=== PATIENT | male | born 1945 | race Caucasian/White ===

== ENCOUNTER 2018-02-22 12:42 | Inpatient (IN) | payer OTHER, MEDICARE ==
--- OUTSIDE RECORDS SUMMARY | 2018-02-22 12:44 | XMS REPORT ---
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 Problem Primary osteoarthritis of both M17.0 Active knees Problem Alcohol abuse F10.10 Active Problem Rectus diastasis M62.08 Active Problem Hemorrhoids K64.9 Active Problem 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 Problem Renal cyst, acquired, left N28.1 Active Assessment Primary osteoarthritis, 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 Assessment Abnormal kidney function N28.9 Active Assessment Alcohol abuse F10.10 Active Assessment Umbilical hernia without K42.9 Active obstruction and without gangrene Assessment Benign essential HTN I10 Active Assessment Primary osteoarthritis of both M17.0 Active knees Problem Insomnia G47.00 Active Assessment Hyperlipidemia E78.5 Active Problem Benign essential HTN I10 Active Medications Medication Code Code Instructions Start End Status Dosage System Date Date Flonase [facility] 47554104295 50 MCG/ACT Active 1 spray in Nasally Once a each day nostril Zyrtec Allergy [facility] 73615646449 10 MG Orally Active 1 tablet Once a day Benadryl [facility] 65970478294 25 MG Orally Active 1 capsule every 8 hrs as needed Celebrex [facility] 81578066411 100 MG Orally Active 1 capsule Once a day with food Vitamin B-12 [facility] 66941592826 1000 MCG Orally Active 1 tablet Once a day Zestoretic [facility] 58707908431 20-25 MG Orally Active 1 tablet Once a day Turmeric [facility] 04786016924 500 MG Orally Active as directed Melatonin [facility] 85009133549 10 MG Orally Active as directed Aspirin [facility] 79780765782 81 MG Orally Active 1 tablet Once a day Lipitor [facility] 81467895832 20 MG Orally Neyda Active 1 tablet Once a day 2017 Results No Known Results Summary Purpose [employer]Works Submission
--- OUTSIDE RECORDS SUMMARY | 2018-02-22 12:44 | XMS REPORT ---
:1945 Author Organization [employer] Care Team Providers Name Role Phone Xiang Hopson Provider Role Unavailable Allergies, Adverse Reactions, Alerts [...] Renal cyst, acquired, left N28.1 Active Assessment Pain, joint, hand, left M25.542 Active Problem Insomnia G47.00 Active Assessment Swelling of left middle finger M79.89 Active Problem Benign essential HTN I10 Active Medications Medication Code Code Instructions Start End Status Dosage System Date Date Turmeric [facility] 17461753458 500 MG Orally Active as directed Benadryl [facility] 03224227983 25 MG Orally Active 1 capsule every 8 hrs as needed Flonase [facility] 72479590544 50 MCG/ACT Active 1 spray in Nasally Once a each day nostril Zestoretic ND 71981832746 20-25 MG Orally Active 1 tablet Once a day Vitamin B-12 ND 33323445603 1000 MCG Orally Active 1 tablet Once a day Melatonin [facility] 20774975735 10 MG Orally Active as directed Aspirin ND 54578827173 81 MG Orally Active 1 tablet Once a day Celebrex ND 92591212348 100 MG Orally Active 1 capsule Once a day with food Lipitor ND 53930983849 20 MG Orally Neyda Active 1 tablet Once a day 2017 Zyrtec Allergy ND 88946684475 10 MG Orally Active 1 tablet Once a day Results No Known Results Summary Purpose eClinicalWorks Submission
[2018-02-22 13:28] LABS: Absolute Lymphocytes (CBC) 0.8 K/uL (0.7-4.9); Absolute Monocytes 0.7 K/uL (0.1-1.3); Absolute Neutrophil 8.9 K/uL (1.8-8.0); Basophils % 0.1 % (0-1.3); Eosinophils % 2.5 % (0-4.4); Hematocrit 47.8 % (39.6-49.0); Lymphocytes % 7.8 % (15.3-44.8); MCH 33.9 pg (27.0-35.0); MCV 97.4 fL (80-100); MPV 9.5 fL (7.6-11.3); Monocytes % 6.8 % (3.3-12.3); RBC Red Blood Cell Count 4.91 M/uL (4.33-5.43)
[2018-02-22] MEDS ORDERED: NA CHLORIDE 0.9% 1,000 ML ONE ×2 (13:28→15:41)
[2018-02-22 13:29] LABS: Protime INR 1.02
[2018-02-22] MEDS ORDERED: ONDANSETRON 4 MG/2 ML VIAL ONE (13:32)
[2018-02-22 13:51] LABS: ALT/SGPT 27 U/L (12-78); AST/SGOT 19 U/L (15-37); Albumin 3.4 g/dL (3.4-5.0); Alkaline Phosphatase 69 U/L (45-117); BUN Blood Urea Nitrogen 18 mg/dL (7-18); Bicarbonate 26 mmol/L (21-32); Bilirubin Direct 0.1 mg/dL (0-0.2); Bilirubin Total 0.4 mg/dL (0.2-1.0); Glucose Level 115 mg/dL (74-106); Magnesium 2.2 mg/dL (1.8-2.4); NT PRO-BNP 73 pg/mL (<125); Potassium 4.2 mmol/L (3.5-5.1); Protein, Total 6.6 g/dL (6.4-8.2); Sodium Level 139 mmol/L (136-145); Troponin (Emerg Dept Use Only) < 0.02 ng/mL (0.0-0.045)
--- NOTE | 2018-02-22 14:55 | RAD REPORT ---
EXAM DESCRIPTION: CT - CTHCSPWOC - 02/22/2018 2:28 pm CLINICAL HISTORY: Syncope, dizziness, fall COMPARISON: None. TECHNIQUE: Axial 5 mm thick images of the head were obtained. Axial 2 mm thick images of the cervic al spine were obtained with sagittal and coronal reconstruction images generated and reviewed. All CT scans are performed using dose optimization technique as appropriate and may include automated exposure control or mA/KV adjustment according to patient size. FINDINGS: No intracranial hemorrhage, mass, edema or acute intracranial finding. No suspicion for acute infarct ion. Mild atrophy and chronic ischemic changes are present. Ventricles are in proportion to volume lo ss. No cortical edema or sulcal effacement. Mastoid air cells are clear. Minimal frontal sinus mucosa l thickening. No air-fluid level. Significant left deviation of the nasal septum. No globe or orbit a bnormality seen. Cervical body height and alignment are normal. C4-5, C5-6 and C6-7 disc space narrowing present. Cent ral canal detail is inherently limited. Significant right foraminal stenosis at C4-5 and bilateral at C5-6. Moderate bilateral C6-7 foraminal stenosis. No fracture or acute bony abnormality. No paraspinal mass or hematoma. IMPRESSION: No hemorrhage, edema or acute intracranial finding. Patient has mild atrophy and chronic ischemic change. Cervical degenerative changes are present without fracture or acute finding.
--- NOTE | 2018-02-22 15:09 | RAD REPORT ---
EXAM DESCRIPTION: CT - Abdomen Pelvis W Contrast - 02/22/2018 2:39 pm CLINICAL HISTORY: Abdominal pain COMPARISON: April 2014 TECHNIQUE: Biphasic, helical CT imaging of the abdomen and pelvis was performed following 100 ml non -ionic IV contrast. No oral contrast administered. All CT scans are performed using dose optimization technique as appropriate and may include automated exposure control or mA/KV adjustment according to patient size. FINDINGS: No suspicious findings in the lung bases. The liver, spleen, and pancreas show no suspicious findings. Gallbladder and biliary tree are also wi thout suspicious finding. Symmetric renal function is seen with no hydronephrosis or suspicious renal mass. No pyelonephritis o r acute renal parenchymal process. Large left renal cyst is present not significantly different from 2014. No suspicious change in characteristics. Urinary bladder is mostly contracted. Distal esophagus near the GE junction is mildly prominent. The patient has a minimal hiatal hernia. T here is a minimal amount of fluid adjacent to the GE junction. Carey of the gastric antrum are thicke beni and edematous. No outlet obstructive mass. Small bowel loops are not dilated though there are sev eral distal small bowel loops showing mildly prominent carey. Congestion or edema is present surround ing the distal rectum. Moderate stool volume is present. There is minimal stranding in the fatty tiss ues adjacent to the proximal sigmoid colon which is tortuous and redundant. No free air or pneumatosis. There is a small quantity of free fluid in the dependent portion of the p alvaro. No abscess or surgically emergent finding. The appendix is normal. No bulky lymphadenopathy or mass. Patient does have bilateral fat only inguinal hernias. There is evidence for prior repair of a periumbilical hernia. Disc and bony degenerative changes are present. No pathologic bone process. Tarlov cyst formation in the sacrum is present as an incidental finding. IMPRESSION: No bowel obstruction, free air or surgically emergent finding. Patient has a multifocal gastroenteritis pattern. Patient shows evidence for antritis, GE junction/d istal esophagitis, mild distal small bowel enteritis as well as mild colitis findings of the mid sigm oid colon and distal rectum.
--- NOTE | 2018-02-22 15:32 | EDPHYS ---
Physician Documentation [facility] Name: Chidi Patel Age: 73 yrs Sex: Male : 1945 Arrival Date: 02/22/2018 Time: 12:48 Bed 13 Private MD: Hector Markham ED Physician Guanakito Bhandari HPI: 02/22 13:38 This 73 yrs old Male presents to ER via EMS with complaints of Syncope. jr8 13:38 The patient has experienced syncope. Onset: The symptoms/episode began/occurred jr8 acutely, today. Duration: This was a single episode. Context: the episode(s) was witnessed, by family, occurred at home, occurred while the patient was sitting, Just prior to the episode the patient experienced lightheadedness, nausea. Associated injury: Head/face: Neck:. Associated signs and symptoms: The patient has no apparent associated signs or symptoms. Current symptoms: Currently, the patient is not experiencing any symptoms, the patient feels back to baseline, no decreased level of consciousness, no confusion, no dysphasia, no headache, no paralysis, no visual changes. The patient has not experienced similar symptoms in the past. The patient has not recently seen a physician. Patient woke up nauseated. Had several soft stool bowel movements this morning. Was on the toilet and started to feel nauseated again. Was getting up to turn around to vomit and then the next thing he remembers is family helping him off of the floor. Did not take his BP medications this morning . Historical: - Allergies: 12:57 PENICILLINS; tw2 - Home Meds: 12:57 Cymbalta oral oral [Active]; lisinopril-hydrochlorothiazide oral oral [Active]; tw2 atorvastatin oral oral [Active]; aspirin 81 mg Oral chew 1 tab once daily [Active]; - PMHx: 12:57 Hypertension; Hyperlipidemia; tw2 - Immunization history:: Adult Immunizations. - Social history:: Smoking status: . - Ebola Screening: : Patient denies travel to an Ebola-affected area in the 21 days before illness onset. ROS: 13:38 Eyes: Negative for injury, pain, redness, and discharge, ENT: Negative for injury, jr8 pain, and discharge, Neck: Negative for injury, pain, and swelling, Cardiovascular: Negative for chest pain, palpitations, and edema, Respiratory: Negative for shortness of breath, cough, wheezing, and pleuritic chest pain, Back: Negative for injury and pain, MS/Extremity: Negative for injury and deformity, Skin: Negative for injury, rash, and discoloration. 13:38 Abdomen/GI: Positive for abdominal pain, nausea and vomiting, Negative for abdominal distension, anorexia, dysphagia, hematemesis, black/tarry stool, rectal pain, rectal bleeding, bowel incontinence, flatulence. 13:38 Neuro: Positive for syncope. Exam: 13:38 Eyes: Pupils equal round and reactive to light, extra-ocular motions intact. Lids and jr8 lashes normal. Conjunctiva and sclera are non-icteric and not injected. Cornea within normal limits. Periorbital areas with no swelling, redness, or edema. ENT: Nares patent. No nasal discharge, no septal abnormalities noted. Tympanic membranes are normal and external auditory canals are clear. Oropharynx with no redness, swelling, or masses, exudates, or evidence of obstruction, uvula midline. Mucous membranes moist. Neck: Trachea midline, no thyromegaly or masses palpated, and no cervical lymphadenopathy. Supple, full range of motion without nuchal rigidity, or vertebral point tenderness. No Meningismus. Cardiovascular: Regular rate and rhythm with a normal S1 and S2. No gallops, murmurs, or rubs. Normal PMI, no JVD. No pulse deficits. Respiratory: Lungs have equal breath sounds bilaterally, clear to auscultation and percussion. No rales, rhonchi or wheezes noted. No increased work of breathing, no retractions or nasal flaring. Abdomen/GI: Soft, non-tender, with normal bowel sounds. No distension or tympany. No guarding or rebound. No evidence of tenderness throughout. Ventral hernia present and without pain Back: No spinal tenderness. No costovertebral tenderness. Full range of motion. Skin: Warm, dry with normal turgor. Normal color with no rashes, no lesions, and no evidence of cellulitis. MS/ Extremity: Pulses equal, no cyanosis. Neurovascular intact. Full, normal range of motion. Neuro: Awake and alert, GCS 15, oriented to person, place, time, and situation. Cranial nerves II-XII grossly intact. Motor strength 5/5 in all extremities. Sensory grossly intact. Cerebellar exam normal. Normal gait. Vital Signs: 12:54 BP 98 / 63; Pulse 87; Resp 17; Temp 97.6(TE); Pulse Ox 98% on R/A; tw2 12:54 Weight 82.55 kg (R); Height 6 ft. 0 in. (182.88 cm); Pain 0/10; tw2 13:47 BP 119 / 72 Supine; Pulse 78; Resp 14; Pulse Ox 97% on 2 lpm NC; tw2 14:08 BP 129 / 86 Sitting; Pulse 90; tw2 14:08 BP 125 / 79 Supine; Pulse 81; Resp 17; Pulse Ox 99% on 2 lpm NC; tw2 14:47 BP 126 / 76; Pulse 81; Resp 19; Pulse Ox 99% on R/A; tw2 15:15 BP 126 / 80; Pulse 69; Resp 17; Pulse Ox 96% on R/A; tw2 16:03 BP 118 / 70; Pulse 72; Resp 20; Pulse Ox 95% on R/A; tw2 17:00 BP 122 / 90; Pulse 79; Resp 17; Pulse Ox 95% on R/A; tw2 17:50 BP 116 / 77; Pulse 88; Resp 17; Pulse Ox 95% on R/A; tw2 12:54 Body Mass Index 24.68 (82.55 kg, 182.88 cm) tw2 12:54 "no pain, just stomach discomfort" tw2 13:47 pt placed on 2l nc at "seizure" episode tw2 14:08 provider Jorge Swanson PA at bedside tw2 MDM: 12:50 Patient medically screened. jr8 13:38 ED course: Patient while sitting up had syncopal episode in exam bed. Came too fast. jr8 Another Liter Bolus started . 15:30 Data reviewed: vital signs, nurses notes, lab test result(s), EKG, radiologic studies, jr8 CT scan, plain films, and as a result, I will admit patient. Data interpreted: Pulse oximetry: on room air is 99 %. Interpretation: normal. Counseling: I had a detailed discussion with the patient and/or guardian regarding: the historical points, exam findings, and any diagnostic results supporting the discharge/admit diagnosis, lab results, radiology results, the need for further work-up and treatment in the hospital. Physician consultation: Karen Mandujano MD was called at 15:30, was contacted at 15:30, regarding admission, to the telemetry unit. consult, patient's condition, and will see patient. 02/22 13:05 Order name: Basic Metabolic Panel; Complete Time: 13:54 02/22 13:05 Order name: CBC with Diff; Complete Time: 13:32 02/22 13:05 Order name: LFT's; Complete Time: 13:54 02/22 13:05 Order name: Magnesium; Complete Time: 13:54 02/22 13:05 Order name: NT PRO-BNP; Complete Time: 13:54 02/22 13:05 Order name: PT-INR; Complete Time: 13:32 02/22 13:05 Order name: Troponin (emerg Dept Use Only); Complete Time: 13:54 02/22 13:05 Order name: XRAY Chest (1 view); Complete Time: 15:53 02/22 14:05 Order name: CT Head C Spine; Complete Time: 15:00 02/22 14:05 Order name: CT Abd/Pelvis - W/Contrast; Complete Time: 15:19 02/22 13:05 Order name: EKG; Complete Time: 13:07 02/22 13:05 Order name: Cardiac monitoring; Complete Time: 13:18 02/22 13:05 Order name: EKG - Nurse/Tech; Complete Time: 13:18 02/22 13:05 Order name: IV Saline Lock; Complete Time: 13:18 02/22 13:05 Order name: Labs collected and sent; Complete Time: 13:18 02/22 13:05 Order name: O2 Per Protocol; Complete Time: 13:17 02/22 13:05 Order name: O2 Sat Monitoring; Complete Time: 13:02/22 16:21 Order name: Diet Clear Liquid; Complete Time: 16:21 tw2 Administered Medications: 13:20 Drug: NS 0.9% 1000 ml Route: IV; Rate: 1 bolus; Site: left antecubital; tw2 14:08 Follow up: Response: No adverse reaction; IV Status: Completed infusion; IV Intake: tw2 1000ml 13:26 Drug: Zofran 4 mg Route: IVP; Site: left antecubital; tw2 14:08 Follow up: Response: No adverse reaction; Nausea is decreased tw2 15:40 Drug: ProTONIX 40 mg Route: IVP; Site: left antecubital; tw2 16:21 Follow up: Response: No adverse reaction tw2 15:45 Drug: Flagyl 500 mg Volume: 100 ml; Route: IVPB; Rate: 200 ml/hr; Infused Over: 30 tw2 mins; Site: left antecubital; 16:21 Follow up: Response: No adverse reaction; IV Status: Completed infusion tw2 15:45 Drug: NS 0.9% 1000 ml Route: IV; Rate: 125 ml/hr; Site: left antecubital; tw2 16:50 Follow up: IV Status: Infusion continued upon admission tw2 16:21 Drug: Cipro 400 mg Volume: 200 ml; Route: IVPB; Infused Over: 60 mins; Site: left tw2 antecubital; 17:53 Follow up: Response: No adverse reaction; IV Status: Completed infusion tw2 Disposition: 02/22/18 15:31 Hospitalization ordered by Karen Mandujano for Inpatient Admission. Preliminary diagnosis are Dehydration, Orthostatic hypotension, Syncope and collapse, Colitis. - Bed requested for Telemetry/MedSurg (Inpatient). - Status is Inpatient Admission. ss - Condition is Stable. - Problem is new. - Symptoms have improved. UTI on Admission? No Addendum: 02/25/2018 08:12 Co-signature as Attending Physician, Guanakito Bhandari MD I agree with the assessment and c carrera plan of care. Signatures: Dispatcher [employer] [facility] Nancy Kraft RN RN dw Anderson, Corey, MD MD cha Smirch, Shelby, RN RN ss Sky Stephens PA PA jr8 Luisa Lemos RN RN tw2 Corrections: (The following items were deleted from the chart) 02/22 16:43 15:31 Hospitalization Ordered by Karen Mandujano MD for Inpatient Admission. Preliminary dw diagnosis is Dehydration; Orthostatic hypotension; Syncope and collapse; Colitis. Bed requested for Telemetry/MedSurg (Inpatient). Status is Inpatient Admission. Condition is Stable. Problem is new. Symptoms have improved. UTI on Admission? No. jr8 18:02 16:43 02/22/2018 15:31 Hospitalization Ordered by Karen Mandujano MD for Inpatient Admission. Preliminary diagnosis is Dehydration; Orthostatic hypotension; Syncope and collapse; Colitis. Bed requested for Telemetry/MedSurg (Inpatient). Status is Inpatient Admission. Condition is Stable. Problem is new. Symptoms have improved. UTI on Admission? No. dw
--- NOTE | 2018-02-22 15:32 | ER ---
Nurse's Notes [facility] Name: Chidi Patel Age: 73 yrs Sex: Male : 1945 Arrival Date: 02/22/2018 Time: 12:48 Bed 13 Private MD: Hector Markham Diagnosis: Dehydration;Orthostatic hypotension;Syncope and collapse;Colitis Presentation: 02/22 12:48 Presenting complaint: EMS states: pts family called he had a syncopal episode, tw2 +orthostatic pressures for us with dizziness when standing, c/o abdominal pain that started last night, loose stools x1day, Hx HTN. Transition of care: patient was not received from another setting of care. Onset of symptoms was February 22, 2018. Risk Assessment: Do you want to hurt yourself or someone else? Patient reports no desire to harm self or others. Initial Sepsis Screen: Does the patient meet any 2 criteria? No. Patient's initial sepsis screen is negative. Does the patient have a suspected source of infection? No. Patient's initial sepsis screen is negative. Care prior to arrival: Medication(s) given: Normal saline infusion, 400 ml IV initiated. 18 GA, in the left antecubital area. 12:48 Method Of Arrival: EMS: [facility] tw2 12:48 Acuity: RAFAELA 3 tw2 Historical: - Allergies: 12:57 PENICILLINS; tw2 - Home Meds: 12:57 Cymbalta oral oral [Active]; lisinopril-hydrochlorothiazide oral oral [Active]; tw2 atorvastatin oral oral [Active]; aspirin 81 mg Oral chew 1 tab once daily [Active]; - PMHx: 12:57 Hypertension; Hyperlipidemia; tw2 - Immunization history:: Adult Immunizations. - Social history:: Smoking status: . - Ebola Screening: : Patient denies travel to an Ebola-affected area in the 21 days before illness onset. Screenin:48 Abuse screen: Denies threats or abuse. Nutritional screening: No deficits noted. tw2 Tuberculosis screening: No symptoms or risk factors identified. Fall Risk None identified. Assessment: 12:50 General: Appears in no apparent distress. Behavior is calm, cooperative, appropriate tw2 for age. Pain: Denies pain. Neuro: Level of Consciousness is awake, alert, obeys commands, Oriented to person, place, time, situation. Cardiovascular: Reports lightheadedness, Heart tones S1 S2 Capillary refill < 3 seconds Patient's skin is warm and dry. Respiratory: Airway is patent Respiratory effort is even, unlabored, Respiratory pattern is regular, symmetrical, Breath sounds are clear bilaterally. GI: Abdomen is round non-distended, Bowel sounds present X 4 quads. Reports lower abdominal pain, upper abdominal pain, nausea. : No signs and/or symptoms were reported regarding the genitourinary system. EENT: No signs and/or symptoms were reported regarding the EENT system. Derm: Bruising that is dark purple, on around right eye and eyebrow. Musculoskeletal: Capillary refill < 3 seconds, Range of motion: intact in all extremities. 13:20 Reassessment: pts family at bedside report pt having seizure, PHYLICIA Uribe and DIONNE Smith tw2 at bedside, pt is cool and diaphoretic, pts position in bed was lowered to supine, fluids started at this time, will continue to monitor. 13:51 Reassessment: Patient appears in no apparent distress at this time. Patient and/or tw2 family updated on plan of care and expected duration. Pain level reassessed. Patient is alert, oriented x 3, equal unlabored respirations, skin warm/dry/pink. 14:48 Reassessment: Patient appears in no apparent distress at this time. Patient and/or tw2 family updated on plan of care and expected duration. Pain level reassessed. Patient is alert, oriented x 3, equal unlabored respirations, skin warm/dry/pink. 15:00 Reassessment: Patient appears in no apparent distress at this time. Patient and/or tw2 family updated on plan of care and expected duration. Pain level reassessed. Patient is alert, oriented x 3, equal unlabored respirations, skin warm/dry/pink. 16:03 Reassessment: Patient appears in no apparent distress at this time. Patient and/or tw2 family updated on plan of care and expected duration. Pain level reassessed. Patient is alert, oriented x 3, equal unlabored respirations, skin warm/dry/pink. 17:00 Reassessment: Patient appears in no apparent distress at this time. Patient and/or tw2 family updated on plan of care and expected duration. Pain level reassessed. Patient is alert, oriented x 3, equal unlabored respirations, skin warm/dry/pink. 17:53 Reassessment: Patient appears in no apparent distress at this time. Patient and/or tw2 family updated on plan of care and expected duration. Pain level reassessed. Patient is alert, oriented x 3, equal unlabored respirations, skin warm/dry/pink. Vital Signs: 12:54 BP 98 / 63; Pulse 87; Resp 17; Temp 97.6(TE); Pulse Ox 98% on R/A; tw2 12:54 Weight 82.55 kg (R); Height 6 ft. 0 in. (182.88 cm); Pain 0/10; tw2 13:47 BP 119 / 72 Supine; Pulse 78; Resp 14; Pulse Ox 97% on 2 lpm NC; tw2 14:08 BP 129 / 86 Sitting; Pulse 90; tw2 14:08 BP 125 / 79 Supine; Pulse 81; Resp 17; Pulse Ox 99% on 2 lpm NC; tw2 14:47 BP 126 / 76; Pulse 81; Resp 19; Pulse Ox 99% on R/A; tw2 15:15 BP 126 / 80; Pulse 69; Resp 17; Pulse Ox 96% on R/A; tw2 16:03 BP 118 / 70; Pulse 72; Resp 20; Pulse Ox 95% on R/A; tw2 17:00 BP 122 / 90; Pulse 79; Resp 17; Pulse Ox 95% on R/A; tw2 17:50 BP 116 / 77; Pulse 88; Resp 17; Pulse Ox 95% on R/A; tw2 12:54 Body Mass Index 24.68 (82.55 kg, 182.88 cm) tw2 12:54 "no pain, just stomach discomfort" tw2 13:47 pt placed on 2l nc at "seizure" episode tw2 14:08 provider Jorge Swanson PA at bedside tw2 ED Course: 12:48 Patient arrived in ED. tw2 12:48 Bed in low position. Call light in reach. Side rails up X2. Adult w/ patient. Cardiac tw2 monitor on. Pulse ox on. NIBP on. 12:50 Sky Stephens PA is PHCP. jr8 12:50 Guanakito Bhandari MD is Attending Physician. jr8 12:52 Luisa Lemos RN is Primary Nurse. tw2 12:53 Hector Markham MD is Private Physician. rg4 12:54 Triage completed. tw2 12:56 Arm band placed on. tw2 14:13 XRAY Chest (1 view) In Process Unspecified. EDMS 14:28 CT Head C Spine In Process Unspecified. EDMS 14:39 CT Abd/Pelvis - W/Contrast In Process Unspecified. EDMS 15:31 Karen Mandujano MD is Hospitalizing Provider. jr8 16:48 Awaiting: attempted to call report, was told that nurse just got a pt, asked to speak tw2 with charge nurse as ER is full and the room here is needed, was told PHYLICIA Lantigua will have to call me back. 17:32 Awaiting: attempted to call report, was told that phylicia lantigua is not available for report tw2 and the charge nurse is discharging a pt. 17:49 Awaiting: attempted to call report to PHYLICIA Lantigua at this time, PHYLICIA Carroll took report. tw2 17:54 No provider procedures requiring assistance completed. Patient admitted, IV remains in tw2 place. Administered Medications: 13:20 Drug: NS 0.9% 1000 ml Route: IV; Rate: 1 bolus; Site: left antecubital; tw2 14:08 Follow up: Response: No adverse reaction; IV Status: Completed infusion; IV Intake: tw2 1000ml 13:26 Drug: Zofran 4 mg Route: IVP; Site: left antecubital; tw2 14:08 Follow up: Response: No adverse reaction; Nausea is decreased tw2 15:40 Drug: ProTONIX 40 mg Route: IVP; Site: left antecubital; tw2 16:21 Follow up: Response: No adverse reaction tw2 15:45 Drug: Flagyl 500 mg Volume: 100 ml; Route: IVPB; Rate: 200 ml/hr; Infused Over: 30 tw2 mins; Site: left antecubital; 16:21 Follow up: Response: No adverse reaction; IV Status: Completed infusion tw2 15:45 Drug: NS 0.9% 1000 ml Route: IV; Rate: 125 ml/hr; Site: left antecubital; tw2 16:50 Follow up: IV Status: Infusion continued upon admission tw2 16:21 Drug: Cipro 400 mg Volume: 200 ml; Route: IVPB; Infused Over: 60 mins; Site: left tw2 antecubital; 17:53 Follow up: Response: No adverse reaction; IV Status: Completed infusion tw2 Intake: 14:08 IV: 1000ml; Total: 1000ml. tw2 Outcome: 15:31 Decision to Hospitalize by Provider. dominic 17:53 Admitted to Med/surg accompanied by tech, via wheelchair, room 215, with chart, Report tw2 called to Carly Gonzalez RN 17:53 Condition: stable 17:53 Instructed on the need for admit. 18:02 Patient left the ED. ss Signatures: Dispatcher [employer] EDMS Jojo John, RN RN ss Sky Stephens, DIONNE PA jr8 Luisa Lemos RN RN tw2 Renuka Dill rg4 Corrections: (The following items were deleted from the chart) 14:10 13:47 BP 119 / 72 Supine; Pulse 78bpm; Resp 14bpm; Pulse Ox 97% RA; tw2 tw2 14:49 12:50 Derm: No signs and/or symptoms reported regarding the dermatologic system. tw2 tw2 16:52 16:48 Awaiting: attempted to call report, was told that nurse just got a pt, asked to tw2 speak with charge nurse as ER is full and the room here is needed tw2 17:50 17:49 Awaiting: attempted to call report to PHYLICIA Lantigua tw2 tw2 17:55 17:49 Awaiting: attempted to call report to PHYLICIA Lantigua at this time. tw2 tw2
[2018-02-22] MEDS ORDERED: PANTOPRAZOLE 40 MG INJ ONE (15:41)
[2018-02-22] MEDS ORDERED: CIPROFLOXACIN 400mg IV 400 MG/200 ML BAG IV ONE (15:41)
[2018-02-22] MEDS ORDERED: METRONIDAZOLE 500mg IVPB 500 MG/100 ML BAG IV ONE (15:41)
--- NOTE | 2018-02-22 15:44 | RAD REPORT ---
EXAM DESCRIPTION: RAD - Chest Single View - 02/22/2018 2:12 pm CLINICAL HISTORY: Chest pain, abdominal pain COMPARISON: None. TECHNIQUE: AP portable chest image was obtained 1345 hours . FINDINGS: Lung volumes are low. No focal mass or consolidation. Interstitial markings are prominent with the baseline unknown. Vasculature is mildly prominent. Heart size is normal range. No measurable pleural effusion and no pneumothorax. No acute bony abnormality seen. No acute aortic findings suspe cted. IMPRESSION: Baseline examination showing prominent interstitial markings. Mild interstitial edema or infiltrate not excluded.
[2018-02-22] MEDS ORDERED: ONDANSETRON 4 MG/2 ML VIAL IV PRN (18:21)
[2018-02-22] MEDS: NA CHLORIDE 0.9% 1,000 ML IV SCH ×2 (18:21→23:20)
[2018-02-22] MEDS ORDERED: ACETAMINOPHEN 500 MG TAB PO PRN (18:21)
[2018-02-22 18:24] LABS: Urine Blood NEGATIVE (NEG); Urine Glucose NEGATIVE (NEG); Urine Protein NEGATIVE (NEG); Urine pH 5.5 (5.0-7.0)
[2018-02-22] MEDS ORDERED: ENOXAPARIN 40 MG/0.4 ML SQ SCH (20:00)
[2018-02-23] MEDS: METRONIDAZOLE 500mg IVPB 500 MG/100 ML BAG IV SCH ×2 (00:32→10:10)
[2018-02-23] MEDS ORDERED: METHYLPREDNISOLONE 40 MG INJ IV ONE (03:00)
[2018-02-23] MEDS ORDERED: PANTOPRAZOLE 40 MG INJ IVP ONE (03:00)
[2018-02-23] MEDS ORDERED: SODIUM CHLORIDE 0.9% 10ML INJ IV PRN (03:00)
[2018-02-23] MEDS ORDERED: CIPROFLOXACIN 400mg IV 400 MG/200 ML BAG IV SCH (06:00)
[2018-02-23 06:25] LABS: Absolute Lymphocytes (CBC) 0.8 K/uL (0.7-4.9); Absolute Monocytes 0.3 K/uL (0.1-1.3); Absolute Neutrophil 3.8 K/uL (1.8-8.0); Basophils % 0.6 % (0-1.3); Eosinophils % 14.8 % (0-4.4); Lymphocytes % 14.4 % (15.3-44.8); MCH 33.7 pg (27.0-35.0); MCV 97.4 fL (80-100); MPV 9.5 fL (7.6-11.3); Monocytes % 4.3 % (3.3-12.3)
[2018-02-23 06:51] LABS: Albumin 2.9 g/dL (3.4-5.0); Bilirubin Total 0.4 mg/dL (0.2-1.0); Potassium 4.4 mmol/L (3.5-5.1); Protein, Total 5.6 g/dL (6.4-8.2)
--- NOTE | 2018-02-23 07:03 | EKG ---
Test Date: 2018-02-22 Test Time: 13:16:09 Paper Baling Machine Operator: GUILLERMO MEASUREMENT RESULTS: Intervals: Rate: 88 IA: 160 QRSD: 106 QT: 378 QTc: 457 [place]: P: 26 IA: 160 QRS: -30 T: 44 INTERPRETIVE STATEMENTS: Normal sinus rhythm Left axis deviation Minimal voltage criteria for LVH, may be normal variant Abnormal ECG No previous ECG available for comparison Electronically Signed On 02-23-18 07:02:49 DIE TECHNICIAN by Mikal Batista
--- NOTE | 2018-02-23 08:32 | RAD REPORT ---
EXAM DESCRIPTION: US - CP - 02/22/2018 9:32 pm CLINICAL HISTORY: Syncope COMPARISON: None. TECHNIQUE: Real-time sonographic evaluation of both carotid systems was performed. Hadley scale and Do ppler interrogation were performed with waveform tracing bilaterally. FINDINGS: Normal high resistance waveforms are noted in both external carotid arteries. The common c arotid arteries and internal carotid arteries show normal low resistance waveforms. Bilateral carotid bulb calcified plaquing changes are present with right common carotid calcified marvin quing changes as well. On visual inspection no significant luminal narrowing identified. No dissectio n. Peak systolic and end diastolic velocity values and the ICA/CCA ratios are in the non-hemodynamica lly significant range. Antegrade flow seen in both vertebral arteries. Velocity values and ratios were recorded and are retained in the patient's imaging records. IMPRESSION: Bilateral calcified plaquing changes are present. However, no significant stenosis ident ified.
--- NOTE | 2018-02-23 11:09 | P.HP ---
Certification for Inpatient Patient admitted to: Observation With expected LOS: <2 Midnights Patient will require the following post-hospital care: None Practitioner: I am a practitioner with admitting privileges, knowledge of patient current condition, hospital course, and medical plan of care. Services: Services provided to patient in accordance with Admission requirements found in Title 42 Section 412.3 of the Code of Federal Regulations Patient History Date of Service: 02/22/18 Reason for admission: Syncope History of Present Illness: Patient is a 73-year-old gentleman who was in his house when he passed out. He had gone to the bathroom and was having diarrhea and felt nauseated. He felt he was going to vomit but then he passed out. He came around he thinks about 30 seconds later. He was not feeling like himself so he came in to the emergency room for further evaluation. Patient also has a cough and says he feels like something is caught up in the back of his throat. He is not really sure what is causing it. His CT scan revealed gastritis and esophagitis. Patient needs to be evaluated for further treatment. Allergies Penicillins Allergy (Verified 02/22/18 18:19) Itching Home Medications: Aspirin [Aspirin EC 81 MG] 81 mg PO DAILY 02/22/18 Atorvastatin Calcium [Lipitor] 20 mg PO DAILY 02/22/18 Lisinopril/Hydrochlorothiazide [Zestoretic 20-25 mg Tablet] 1 each PO DAILY - Past Medical/Surgical History Has patient received pneumonia vaccine in the past: Yes Diabetic: No -: Hypertension -: Cyst in Kidney -: Umbilical hernia repair -: Eye surgery - Family History Father Medical History: Heart disease, Cancer Mother Medical History: Heart disease, Hypertension - Social History Smoking Status: Never smoker Alcohol use: Yes CD- Drugs: No Caffeine use: Yes Place of Residence: Home Review of Systems 10-point ROS is otherwise unremarkable Physical Examination - Vital Signs Temperature: 97.4 F Blood Pressure: 119/66 Pulse: 82 Respirations: 18 Pulse Ox (%): 93 - Physical Exam General: Alert, In no apparent distress, Oriented x3 HEENT: Atraumatic, PERRLA, Mucous membr. moist/pink, EOMI, Sclerae nonicteric Neck: Supple, 2+ carotid pulse no bruit, No LAD, Without JVD or thyroid abnormality Respiratory: Clear to auscultation bilaterally, Normal air movement Cardiovascular: Regular rate/rhythm, Normal S1 S2, No murmurs Gastrointestinal: Normal bowel sounds, Soft and benign, Non-distended, No tenderness, No rebound, No guarding Musculoskeletal: No clubbing, No swelling, No tenderness Integumentary: No rashes Neurological: Normal gait, Normal speech, Normal strength at 5/5 x4 extr, Normal tone, Sensation intact, Cranial nerves 3-12 intact, Normal affect Lymphatics: No axilla or inguinal lymphadenopathy - Studies Laboratory Data (last 24 hrs) 02/22/18 13:15: PT 12.0, INR 1.02 02/22/18 13:15: WBC 10.7, Hgb 16.7, Hct 47.8, Plt Count 177 02/22/18 13:15: Sodium 139, Potassium 4.2, BUN 18, Creatinine 1.10, Glucose 115 H, Magnesium 2.2, Total Bilirubin 0.4, AST 19, ALT 27, Alkaline Phosphatase 69 Assessment & Plan - Problems (Diagnosis) (1) Syncope and collapse Current Visit: Yes Status: Acute (2) Intractable nausea and vomiting Current Visit: Yes Status: Acute (3) Diarrhea Current Visit: Yes Status: Acute (4) Esophagitis with gastritis Current Visit: Yes Status: Acute - Plan Plan: 1. IV hydration 2. Antiemetics 3. Protonix twice a day 4. Carotid Doppler 5. Echocardiogram 6. Monitor on telemetry 7. GI and DVT prophylaxis Discharge Plan: Home Plan to discharge in: 48 Hours - Advance Directives Does patient have a Living Will: Yes Does patient have a Durable POA for Healthcare: Yes - Code Status/Comfort Care Code Status Assessed: Yes Code Status: Full Code Critical Care: No Time Spent Managing PTS Care (In Minutes): 50
--- NOTE | 2018-02-23 15:31 | P.SSS ---
Patient History Date of Service: 02/23/18 Reason for admission: Syncope History of Present Illness: Patient is a 73-year-old gentleman who was in his house when he passed out. He had gone to the bathroom and was having diarrhea and felt nauseated. He felt he was going to vomit but then he passed out. He came around he thinks about 30 seconds later. He was not feeling like himself so he came in to the emergency room for further evaluation. Patient also has a cough and says he feels like something is caught up in the back of his throat. He is not really sure what is causing it. His CT scan revealed gastritis and esophagitis. Patient needs to be evaluated for further treatment. Allergies Penicillins Allergy (Verified 02/22/18 18:19) Itching Home Medications: Aspirin [Aspirin EC 81 MG] 81 mg PO DAILY 02/22/18 Atorvastatin Calcium [Lipitor*] 20 mg PO DAILY 02/22/18 Lisinopril/Hydrochlorothiazide [Zestoretic 20-25 mg Tablet] 1 each PO DAILY Pantoprazole Sodium [Protonix] 40 mg PO DAILY #30 tab 02/23/18 - Past Medical/Surgical History Has patient received pneumonia vaccine in the past: Yes Diabetic: No -: Hypertension -: Cyst in Kidney -: Umbilical hernia repair -: Eye surgery - Family History Father -: Heart disease, Cancer Mother -: Heart disease, Hypertension - Social History Smoking Status: Never smoker Alcohol use: Yes CD- Drugs: No Caffeine use: Yes Place of Residence: Home Review of Systems 10-point ROS is otherwise unremarkable Physical Examination - Vital Signs Temperature: 98.0 F Blood Pressure: 149/80 Pulse: 84 Respirations: 16 Pulse Ox (%): 97 - Physical Exam General: Alert, In no apparent distress HEENT: Atraumatic, PERRLA, Mucous membr. moist/pink, EOMI, Sclerae nonicteric Neck: Supple, 2+ carotid pulse no bruit, No LAD, Without JVD or thyroid abnormality Respiratory: Clear to auscultation bilaterally, Normal air movement Cardiovascular: Regular rate/rhythm, Normal S1 S2 Gastrointestinal: Normal bowel sounds, No tenderness Musculoskeletal: No tenderness Integumentary: No rashes Neurological: Normal gait, Normal speech, Normal strength at 5/5 x4 extr, Normal tone, Normal affect Lymphatics: No axilla or inguinal lymphadenopathy Treatment Summary: Overall during the hospital stay patient remained stable Patient was initially admitted to the hospital for syncope most likely secondary to dehydration secondary to diarrhea. Patient has been doing well overall. Patient had extensive workup done here for syncopal episode here in the hospital. All the workup was negative for any acute abnormality. Patient then ambulated with physical therapy and thus was discharged home under stable condition. Patient's syncopal episode did resolve while here in the hospital. No other complaints to offer. Patient was asked to follow up with his primary care provider in about 1-2 days post discharge. - Disposition Disposition: ROUTINE DISCHARGE Condition: GOOD Diet: Regular Activity: Ad juno
[2018-02-23] MEDS ORDERED: PANTOPRAZOLE 40 MG INJ IVP SCH (21:00)
== END 2018-02-23 13:34 | disposition home or self-care (01) | DRG 641 ==
LOC: ER 12:42 → ERHOLD 16:10 → 2ND 17:53
PROVIDERS: ADMIT Family Medicine; ATTEND Family Medicine
DX: E86.0 Dehydration (principal); R55 Syncope and collapse; R19.7 Diarrhea, unspecified; K20.9 Esophagitis, unspecified; K29.70 Gastritis, unspecified, without bleeding; I95.9 Hypotension, unspecified; E78.49 Other hyperlipidemia; I10 Essential (primary) hypertension; N28.1 Cyst of kidney, acquired; Z88.0 Allergy status to penicillin; Z79.82 Long term (current) use of aspirin
CPT/HCPCS: 36415; 70450; 71045; 72125; 74177; 80048; 80053; 80076; 81003; 83735; 83880; 84484; 85025; 85610; 93005; 93880; 96361; 96365; 96367; 96375; 97163; 99285; C9113; J0744; J1650; J2405; J2920; J7030; Q9967

== ENCOUNTER 2020-12-10 07:07 | Day surgery (SDC) | payer OTHER, MEDICARE ==
[2020-12-10] MEDS ORDERED: propofoL 200 MG/20 ML VIAL IV ONE ×2 (07:35→08:49)
[2020-12-10] MEDS ORDERED: GLYCOPYRROLATE 0.2 MG/ML SYR ONE (07:36)
[2020-12-10] MEDS ORDERED: LIDOCAINE 2% MPF 5 ML VIAL ONE (07:37)
[2020-12-10] MEDS: Ringers Lactate 1,000 ML IV ONE ×2 (07:45→08:07)
--- NOTE | 2020-12-10 09:08 | ENDO RPT ---
[address], [address] COLONOSCOPY PROCEDURE REPORT EXAM DATE: 12/10/2020 PATIENT NAME: Chidi Patel MR #: [id number] BIRTHDATE: 1945 ATTENDING: Benny Slade DR STATUS: outpatient REFRACTORY REPAIRER: Marcella Lopez RN and Kayce Valle CST INDICATIONS: The patient is a 75 yr old Male here for a colonoscopy due to colon cancer screening PROCEDURE PERFORMED: Screening Colonoscopy MEDICATIONS: Per Anesthesia. ESTIMATED BLOOD LOSS: None CONSENT: The patient understands the risks and benefits of the procedure and understands that these risks include, but are not limited to: sedation, allergic reaction, infection, perforation and/or bleeding. Alternative means of evaluation and treatment include, among others: physical exam, x-rays, and/or surgical intervention. The patient elects to proceed with this endoscopic procedure. DESCRIPTION OF PROCEDURE: During intra-op preparation period all mechanical medical equipment was checked for proper function. Hand hygiene and appropriate measures for infection prevention was taken. Procedure, possible complications, alternatives including, but not limited to possibility of bleeding, perforation, tear, infection, sepsis, need for surgery, need for blood transfusion, were explained to the patient. After the risks, benefits and alternatives of the procedure were thoroughly explained, Informed consent was verified, confirmed and timeout was successfully executed by the treatment team. The patient was placed in the left lateral position. A digital rectal exam was performed and revealed internal hemorrhoids. After appropriate level of anesthesia, the scope was passed. The EC-3890Li ([id number]) and [id number] ([id number]) endoscope was introduced through the anus and advanced to the hepatic flexure. The quality of the prep was fair. The instrument was then slowly withdrawn as the colon was fully examined. Scope withdrawal time was 10 minutes. COLON FINDINGS: Incomplete Colonoscopy. Retroflexed views revealed no abnormalities. The scope was then completely withdrawn from the patient and the procedure terminated. ADVERSE EVENTS: There were no complications. IMPRESSIONS: Incomplete Colonoscopy RECOMMENDATIONS: 1. avoid NSAIDS 2. avoid NSAIDS for 2 weeks 3. follow-up: office 2 week(s) 4. Monitor for any evidence of rectal bleeding. 5. Call office for alternative prep - 2 days RECALL: Return in 2 week(s) for Colonoscopy. Repeat Prep Benny Slade DR eSigned: Benny Slade DR 12/10/2020 9:08 AM cc: CPT CODES: ICD9 CODES:
[2020-12-10] MEDS ORDERED: NA CHLORIDE 0.9% 500 ML ONE (09:15)
[2020-12-10 09:46] VITALS: TEMP 97.2
[2020-12-10 10:02] VITALS: BP 122/78; O2SAT 98
== END 2020-12-10 10:11 | disposition home or self-care (01) ==
LOC: OR 07:07
PROVIDERS: ATTEND Surgery
PROC: 0DJD8ZZ Inspection of Lower Intestinal Tract, Via Natural or Artificial Opening Endoscopic (ICD-10-PCS; principal; 2020-12-10 08:00)
DX: Z12.11 Encounter for screening for malignant neoplasm of colon (principal); K64.8 Other hemorrhoids; Z20.822 Contact with and (suspected) exposure to COVID-19
CPT/HCPCS: U0002; J2704 ×2; J7120; J7040; G0121

== ENCOUNTER 2021-01-03 07:27 | Day surgery (SDC) | payer OTHER, MEDICARE ==
[2021-01-03] MEDS: Ringers Lactate 1,000 ML IV ONE ×2 (07:50→08:23)
[2021-01-03] MEDS ORDERED: propofoL 200 MG/20 ML VIAL IV ONE ×2 (08:39→09:29)
[2021-01-03] MEDS ORDERED: LIDOCAINE 1% MPF 5 ML VIAL ONE (08:39)
--- NOTE | 2021-01-03 09:27 | ENDO RPT ---
[address], [address] COLONOSCOPY PROCEDURE REPORT EXAM DATE: 01/03/2021 PATIENT NAME: Chidi Patel MR #: [id number] BIRTHDATE: 1945 ATTENDING: Benny Slade DR STATUS: outpatient SIGNALING DESIGN ENGINEER: Carlene Gates RN and Simin Cisneros INDICATIONS: The patient is a 75 yr old Male here for a colonoscopy due to colon cancer screening PROCEDURE PERFORMED: Screening Colonoscopy and Colonoscopy MEDICATIONS: Per Anesthesia. ESTIMATED BLOOD LOSS: None CONSENT: The patient understands the risks and benefits of the procedure and understands that these risks include, but are not limited to: sedation, allergic reaction, infection, perforation and/or bleeding. Alternative means of evaluation and treatment include, among others: physical exam, x-rays, and/or surgical intervention. The patient elects to proceed with this endoscopic procedure. DESCRIPTION OF PROCEDURE: During intra-op preparation period all mechanical medical equipment was checked for proper function. Hand hygiene and appropriate measures for infection prevention was taken. Procedure, possible complications, alternatives including, but not limited to possibility of bleeding, perforation, tear, infection, sepsis, need for surgery, need for blood transfusion, were explained to the patient. After the risks, benefits and alternatives of the procedure were thoroughly explained, Informed consent was verified, confirmed and timeout was successfully executed by the treatment team. The patient was placed in the left lateral position. A digital rectal exam was performed and revealed internal hemorrhoids. After appropriate level of anesthesia, the scope was passed. The EC-3890Li ([id number]) and [id number] ([id number]) endoscope was introduced through the anus and advanced to the cecum. The quality of the prep was fair. The instrument was then slowly withdrawn as the colon was fully examined. Scope withdrawal time was 10 minutes. COLON FINDINGS: Small internal hemorrhoids were found. The colon mucosa was otherwise normal. The colon was redundant. Manual abdominal counter-pressure was used to reach the cecum. The Therapeutic Colonoscope was used. Retroflexed views revealed no abnormalities. The scope was then completely withdrawn from the patient and the procedure terminated. ADVERSE EVENTS: There were no complications. IMPRESSIONS: 1. Small internal hemorrhoids 2. The colon mucosa was otherwise normal RECOMMENDATIONS: 1. fiber rich diet 2. avoid NSAIDS for 2 weeks 3. follow-up: office 2 week(s) 4. Monitor for any evidence of rectal bleeding. 5. hemorrhoidal hygiene 6. yearly hemoquant RECALL: Return in 3 year(s) for Colonoscopy. Tortuous Colon Benny Slade DR eSigned: Benny Slade DR 01/03/2021 9:27 AM cc: CPT CODES: ICD9 CODES: PATIENT NAME: Chidi Patel MR#: [id number]
[2021-01-03] MEDS ORDERED: GLYCOPYRROLATE 0.2 MG/ML SYR ONE (09:45)
[2021-01-03 09:51] VITALS: O2SAT 99
[2021-01-03 10:09] VITALS: BP 120/64; TEMP 98.1
== END 2021-01-03 10:15 | disposition home or self-care (01) ==
LOC: OR 07:27
PROVIDERS: ATTEND Surgery
PROC: 0DJD8ZZ Inspection of Lower Intestinal Tract, Via Natural or Artificial Opening Endoscopic (ICD-10-PCS; principal; 2021-01-03 08:30)
DX: Z12.11 Encounter for screening for malignant neoplasm of colon (principal); K64.8 Other hemorrhoids; Z20.822 Contact with and (suspected) exposure to COVID-19
CPT/HCPCS: U0003; J2704 ×2; J7120

== ENCOUNTER 2021-03-18 09:24 | Day surgery (SDC) | payer OTHER, MEDICARE ==
[2021-03-15 08:49] LABS: Absolute Lymphocytes (CBC) 1.6 K/uL (0.7-4.9); Basophils % 0.7 % (0-1.3); Hematocrit 45.6 % (39.6-49.0); Lymphocytes % 32.4 % (15.3-44.8); MPV 8.7 fL (7.6-11.3)
[2021-03-18] MEDS ORDERED: Ringers Lactate 1,000 ML IV ONE (09:32)
[2021-03-18] MEDS ORDERED: CEFAZOLIN/SWI 2gm 0 GM/0 ML SYR ONE (09:33)
[2021-03-18] MEDS ORDERED: VANCOMYCIN 1 GM/VIAL ONE (09:35)
[2021-03-18] MEDS ORDERED: CELECOXIB 100 MG CAPSULE ONE (10:04)
[2021-03-18] MEDS ORDERED: ACETAMINOPHEN 500 MG TAB ONE (10:04)
[2021-03-18] MEDS ORDERED: BUPIVACAINE 0.25% PF 10 ML VIAL ONE (11:24)
[2021-03-18] MEDS ORDERED: propofoL 200 MG/20 ML VIAL IV ONE (11:24)
[2021-03-18] MEDS ORDERED: MIDAZOLAM HCL 2 MG/2 ML INJ ONE (11:24)
[2021-03-18] MEDS ORDERED: ROCURONIUM 50 MG/5 ML VIAL IV ONE (11:25)
[2021-03-18] MEDS ORDERED: LIDOCAINE 1% MPF 5 ML VIAL ONE (11:25)
[2021-03-18] MEDS ORDERED: FENTANYL CITR 100 MCG/2 ML ONE ×2 (11:25→12:47)
[2021-03-18] MEDS ORDERED: NS 0.9% VIAL 10 ML ONE ×2 (11:38→12:10)
[2021-03-18] MEDS ORDERED: EPHEDRINE SULF 50 MG/ML VIAL ONE (12:10)
[2021-03-18] MEDS ORDERED: GLYCOPYRROLATE 0.2 MG/ML SYR ONE (12:38)
[2021-03-18] MEDS ORDERED: KETOROLAC 30 MG/ML INJ ONE (12:38)
[2021-03-18] MEDS ORDERED: ONDANSETRON 4 MG/2 ML VIAL ONE (12:39)
[2021-03-18] MEDS ORDERED: NEOSTIGMINE 1 MG/ML -5 ML ONE (12:40)
--- NOTE | 2021-03-18 12:47 | P.OP ---
Preoperative diagnosis: Ventral Abdominal Hernia Postoperative diagnosis: Ventral Abdominal Hernia Primary procedure: Laparoscopic Ventral Hernia Repair with mesh Anesthesia: GETA + Local Estimated blood loss: <5cc Specimen: hernia contents Findings: midline ventral hernia ~ 11cm x 4 cm, large midline diastasis recti Complications: None Implants: 15.2cm x 20.[address] mesh with echo position Transferred to: Recovery Room Condition: Good
[2021-03-18] MEDS: HYDROMORPHONE HCL 2 MG/ML inj ONE ×4 (13:00→13:16)
--- NOTE | 2021-03-18 13:27 | OP ---
Date of Procedure: 03/18/2021 Surgeon: Benny Slade MD, Preoperative Diagnosis: Ventral abdominal hernia. Postoperative Diagnosis: Ventral abdominal hernia. Procedure Performed: Laparoscopic ventral hernia repair with mesh. Anesthesia: General endotracheal plus local with 0.5% Marcaine without epinephrine. Estimated Blood Loss: Less than 5 cc. Specimen: Hernia contents. Findings: Midline ventral hernia, 11 cm x 4 cm. Large midline diastasis recti. Complications: None. Implants: 15.2 cm x 20.[address] mesh with Echo Positioning System. Condition: The patient was transferred to recovery room in good condition. Procedure In Detail: After informed consent was obtained, the patient was brought to the operating r oom, and prepped and draped in the usual sterile fashion. After adequate anesthesia was achieved, a left upper quadrant area was anesthetized with the 0.5% Marcaine, sharply incised. A 5 mm 0-degree o ptical trocar was introduced in the abdomen without evidence of complication. Insufflation obtained to 50 mmHg at this time. The abdomen was inspected at this point. There was a large preperitoneal f at-containing defect in the anterior bowel wall consistent with a shallow ventral hernia. The patien t had a quite thin abdominal wall and a significant diastasis recti was appreciated at this point. I chose to place an additional trocar in the left lower quadrant. This was a 12 mm trocar placed unde r direct visualization without evidence of any complication after appropriately anesthetizing the ski n. At this point, the LigaSure device was used to take the preperitoneal fat contents out of the her jeremías to allow for clean landing zone for the mesh. At this point, the previous mesh was noted in the periumbilical position. As such, I sized the hernia as above and opted for a 15 x [address] mesh with Echo Positioning System. This was brought into the abdomen and deployed appropriat caleb through the central portion of the mesh after appropriately sizing it. I secured the mesh to the anterior abdominal wall using the absorbable fixation tacker SorbaFix. I then removed the balloon d eployment system at this point as found to be intact on the back table. At this point, I continued a double crown type positioning of the mesh to the anterior abdominal wall with good apposition of the mesh to the anterior abdominal wall. At this point, no hemostatic measures were required. The chanelle ent was positioned slightly rotated to the right. The 12 mm trocar was removed. The 12 mm trocar si te was closed using a Isrrael-Nancy suture passer with #1 Vicryl in interrupted fashion. Good appr oximation of tissues. The abdomen was completely desufflated under direct visualization without evid ence of complication. All skin incisions were then copiously irrigated and closed with a 4-0 Monocry l in a running fashion. Dermabond was placed over the top. The patient tolerated the procedure well without evidence of complication and transferred to PACU in good condition. All counts were correct at the end of the case. MAGDALENA/ELIZABETH Voice ID: [id number] Report ID: [id number]
[2021-03-18] MEDS ORDERED: HYDROCODONE/APAP 10/325 TAB ONE (14:04)
[2021-03-18 17:09] VITALS: BP 112/72; TEMP 96.8; O2SAT 94
== END 2021-03-18 14:50 | disposition home or self-care (01) ==
LOC: OR 09:24
PROVIDERS: ATTEND Surgery
PROC: 0WUF4JZ Supplement Abdominal Wall with Synthetic Substitute, Percutaneous Endoscopic Approach (ICD-10-PCS; principal; 2021-03-18 11:30)
DX: K43.2 Incisional hernia without obstruction or gangrene (principal); M62.08 Separation of muscle (nontraumatic), other site; I10 Essential (primary) hypertension; E78.00 Pure hypercholesterolemia, unspecified; J44.9 Chronic obstructive pulmonary disease, unspecified; K21.9 Gastro-esophageal reflux disease without esophagitis; E07.9 Disorder of thyroid, unspecified; Z88.0 Allergy status to penicillin; Z20.822 Contact with and (suspected) exposure to COVID-19
CPT/HCPCS: 85025; 80048; 36415; 88302; 49656; U0002; J2704; J1170; J3010 ×2; J3370; J2710; J7120; J2405; J0690; J2250

== ENCOUNTER 2021-10-03 19:47 | Emergency (ER) | payer OTHER, MEDICARE ==
[2021-10-03] MEDS ORDERED: NA CHLORIDE 0.9% 1,000 ML ONE (21:28)
--- NOTE | 2021-10-03 22:05 | RAD REPORT ---
EXAM DESCRIPTION: RAD - Chest Single View - 10/03/2021 9:50 pm CLINICAL HISTORY: COUGH COMPARISON: Portable 02/22/2021 TECHNIQUE: AP portable chest image was obtained 10/03/2021 9:50 pm . FINDINGS: Single portable view was present. Each lung apex is cut off the field of view. Top of the aortic arch also cut off the field of view. No acute lung parenchymal process seen. No significant fa ilure or volume overload. Heart and vasculature are normal. No measurable pleural effusion and no pneumothorax. No acute bony abnormality seen. No acute aortic findings suspected. IMPRESSION: Limited portable study without acute cardiopulmonary finding
--- NOTE | 2021-10-03 22:06 | RAD REPORT ---
EXAM DESCRIPTION: CT - Head Brain Wo Cont - 10/03/2021 9:41 pm CLINICAL HISTORY: Syncope, recurrent COMPARISON: No comparisons TECHNIQUE: Axial 5 mm thick images of the head were obtained without IV contrast. All CT scans are performed using dose optimization technique as appropriate and may include automated exposure control or mA/KV adjustment according to patient size. FINDINGS: No intracranial hemorrhage, mass, edema or shift of mid-line structures. No cortical level infarction seen. No cortical edema or sulcal effacement. Atrophy is mild for age. Ventricles are in proportion to volume loss. No abnormal extra-axial fluid collections. No significant chronic ischemic pattern. Mastoid air cells and visualized portions of the paranasal sinuses are clear. No acute bony findings. IMPRESSION: Negative non-contrast CT head examination for acute finding.
[2021-10-03 22:13] LABS: Absolute Lymphocytes (CBC) 1.2 K/uL (0.7-4.9); Hematocrit 42.8 % (39.6-49.0); Lymphocytes % 18.9 % (15.3-44.8); MCV 97.8 fL (80-100); MPV 9.5 fL (7.6-11.3); RBC Red Blood Cell Count 4.37 M/uL (4.33-5.43)
[2021-10-03 22:14] LABS: Protime INR 1.02
[2021-10-03 22:16] LABS: Bilirubin Direct 0.1 mg/dL (0-0.2); Bilirubin Total 0.4 mg/dL (0.2-1.0); Magnesium 2.5 mg/dL (1.8-2.4); Potassium 4.3 mmol/L (3.5-5.1); Protein, Total 7.5 g/dL (6.4-8.2); Troponin High Sensitivity 4.7 pg/mL (<58.9)
--- NOTE | 2021-10-03 22:34 | ER ---
Nurse's Notes [facility] Name: Chidi Patel Age: 76 yrs Sex: Male : 1945 Arrival Date: 10/03/2021 Time: 19:51 Bed 7 Private MD: Diagnosis: Dizziness and giddiness;Weakness Presentation: 10/03 19:58 Chief complaint: Spouse and/or significant other states: His eyes rolled to the back of jb4 his head, he was very sweaty, he was disoriented. He said his vision went black and there were black spots everywhere. EMS states: We were called out for pt having a syncopal episode. reports pt was Diaphoretic. Vs stable upon EMS arrival, pt awake and alert. Coronavirus screen: At this time, the client does not indicate any symptoms associated with coronavirus-19. Ebola Screen: No symptoms or risks identified at this time. Initial Sepsis Screen: Does the patient meet any 2 criteria? No. Patient's initial sepsis screen is negative. Does the patient have a suspected source of infection? No. Patient's initial sepsis screen is negative. Risk Assessment: Do you want to hurt yourself or someone else? Patient reports no desire to harm self or others. Onset of symptoms was October 03, 2021. Transition of care: patient was not received from another setting of care. 19:58 Method Of Arrival: EMS: [place] [id number] 19:58 Acuity: RAFAELA 3 jb4 Triage Assessment: 20:01 General: Appears in no apparent distress. comfortable, Behavior is calm, cooperative, jb4 appropriate for age. Pain: Complains of pain in headache Pain does not radiate. Pain currently is 2 out of 10 on a pain scale. Neuro: Level of Consciousness is awake, alert, obeys commands, Oriented to person, place, time, situation, Moves all extremities. Full function Gait is steady, Speech is normal, Facial symmetry appears normal. Cardiovascular: Patient's skin is warm and dry. Respiratory: Airway is patent Respiratory effort is even, unlabored, Respiratory pattern is regular, symmetrical. Derm: Skin is intact, Skin is pink, warm \\T\\ dry. Musculoskeletal: Circulation, motion, and sensation intact. Range of motion: intact in all extremities. Historical: - Allergies: 20:01 PENICILLINS; jb4 - Home Meds: 20:01 aspirin 81 mg Oral chew 1 tab once daily [Active]; atorvastatin Oral [Active]; jb4 lisinopril-hydrochlorothiazide Oral [Active]; - PMHx: 20:01 Hyperlipidemia; Hypertension; jb4 - PSHx: 20:01 hernia repair; jb4 - Immunization history:: Adult Immunizations up to date. - Social history:: Smoking status: Patient denies any tobacco usage or history of. Patient uses alcohol, occasionally. - Family history:: not pertinent. Screenin:55 Abuse screen: Denies threats or abuse. Denies injuries from another. Nutritional as6 screening: No deficits noted. Tuberculosis screening: No symptoms or risk factors identified. Fall Risk None identified. Assessment: 20:50 General: Appears in no apparent distress. comfortable, Behavior is calm, cooperative, as6 Reports "sleepy". Pain: Complains of pain in headache Pain currently is 1.5 out of 10 on a pain scale. 20:52 General: states "I had 3 martinis today, I was outside for about 15 min grilling as6 vegetables then went inside." Spouse at bedside states "I noticed he was woozy and went lethargic, his eyes rolled to the back of his head. I called 911, His blood pressure was maybe 90/50. I think he would have fallen if I was not right next to him.". 20:55 Neuro: Level of Consciousness is awake, alert, obeys commands, Oriented to person, as6 place, time, situation, Information Management Specialist are equal bilaterally Moves all extremities. Speech is normal, Facial symmetry appears normal. Vital Signs: 19:58 BP 112 / 64; Pulse 65; Resp 16; Temp 97.8(O); Pulse Ox 95% ; Weight 78.02 kg (R); jb4 Height 6 ft. 0 in. (182.88 cm) (R); Pain 0/10; 20:51 BP 110 / 69; Pulse 79; Resp 12 S; Temp 98.8; Pulse Ox 99% on R/A; as6 21:40 BP 114 / 67; Pulse 64; Resp 16 S; Pulse Ox 96% on R/A; as6 23:15 BP 107 / 78; Pulse 60; Resp 15 S; Pulse Ox 99% on R/A; Pain 0/10; as6 19:58 Body Mass Index 23.33 (78.02 kg, 182.88 cm) jb4 ED Course: 19:51 Patient arrived in ED. jb4 20:01 Triage completed. jb4 20:01 Arm band placed on right wrist. jb4 20:01 Patient has correct armband on for positive identification. Allergy band placed. Bed in as6 low position. Call light in reach. Side rails up X2. Adult w/ patient. 20:24 Jignesh Sutton, RN is Primary Nurse. as6 20:24 Guanakito Bhandari MD is Attending Physician. lalito 21:30 Inserted saline lock: 20 gauge in left antecubital area, using aseptic technique. Blood as6 collected. 21:38 Basic Metabolic Panel Sent. as6 21:38 CBC with Diff Sent. as6 21:38 LFT's Sent. as6 21:38 Magnesium Sent. as6 21:38 NT PRO-BNP Sent. as6 21:38 PT-INR Sent. as6 21:38 Troponin HS Sent. as6 21:43 CT Head Brain wo Cont In Process Unspecified. EDMS 21:52 XRAY Chest (1 view) In Process Unspecified. EDMS 22:33 Jani Arevalo MD is Referral Physician. lalito 22:33 Lc Gaffney MD is Referral Physician. [facility] 23:26 No provider procedures requiring assistance completed. IV discontinued, intact, as6 bleeding controlled, No redness/swelling at site. Pressure dressing applied. Administered Medications: 20:30 Drug: NS 0.9% 1000 ml Route: IV; Rate: 1 bolus; Site: left antecubital; as6 23:29 Follow up: Response: No adverse reaction; IV Status: Completed infusion; IV Intake: as6 1000ml Medication: 23:28 VIS not applicable for this client. as6 Intake: 23:29 IV: 1000ml; Total: 1000ml. as6 Outcome: 22:33 Discharge ordered by . lalito 23:27 Discharged to home ambulatory, with significant other. as6 23:27 Condition: stable 23:27 Discharge instructions given to patient, significant other, Instructed on discharge instructions, follow up and referral plans. Demonstrated understanding of instructions, follow-up care. 23:33 Patient left the ED. as6 Signatures: Dispatcher [employer] EDAZ Guanakito Bhandari MD MD cha Bryson, James, RN RN jb Jignesh Sutton RN RN as6 Corrections: (The following items were deleted from the chart) 20:03 20:01 PSHx: abdomenal surgery.; jb4 jb4
--- NOTE | 2021-10-03 22:34 | EDPHYS ---
Physician Documentation [facility] Name: Chidi Patel Age: 76 yrs Sex: Male : 1945 Arrival Date: 10/03/2021 Time: 19:51 Bed 7 Private MD: ED Physician Guanakito Bhandari HPI: 10/03 21:20 This 76 yrs old Male presents to ER via EMS with complaints of weakness,carrera lalito and dizzy. 21:20 weakness, carrera. The patient presents with dizziness, generalized weakness. Onset: The lalito symptoms/episode began/occurred 1 day(s) ago. Context: occurred at home, occurred while the patient was cooking. Modifying factors: The symptoms are alleviated by nothing, the symptoms are aggravated by nothing. Associated signs and symptoms: Pertinent positives: headache, near-syncope. Severity of symptoms: At their worst the symptoms were mild in the emergency department the symptoms are unchanged. Patient's baseline: Neuro:. Historical: - Allergies: 20:01 PENICILLINS; jb4 - Home Meds: 20:01 aspirin 81 mg Oral chew 1 tab once daily [Active]; atorvastatin Oral [Active]; jb4 lisinopril-hydrochlorothiazide Oral [Active]; - PMHx: 20:01 Hyperlipidemia; Hypertension; jb4 - PSHx: 20:01 hernia repair; jb4 - Immunization history:: Adult Immunizations up to date. - Social history:: Smoking status: Patient denies any tobacco usage or history of. Patient uses alcohol, occasionally. - Family history:: not pertinent. ROS: 21:20 Constitutional: Negative for fever, chills, and weight loss, Eyes: Negative for injury, lalito pain, redness, and discharge, ENT: Negative for injury, pain, and discharge, Neck: Negative for injury, pain, and swelling, Cardiovascular: Negative for chest pain, palpitations, and edema, Respiratory: Negative for shortness of breath, cough, wheezing, and pleuritic chest pain, Abdomen/GI: Negative for abdominal pain, nausea, vomiting, diarrhea, and constipation, Back: Negative for injury and pain, : Negative for injury, bleeding, discharge, and swelling, MS/Extremity: Negative for injury and deformity, Skin: Negative for injury, rash, and discoloration, Neuro: Negative for headache, weakness, numbness, tingling, and seizure. 21:20 Neuro: Positive for dizziness, weakness, Negative for altered mental status. Exam: 21:20 Constitutional: This is a well developed, well nourished patient who is awake, alert, lalito and in no acute distress. Head/Face: Normocephalic, atraumatic. Eyes: Pupils equal round and reactive to light, extra-ocular motions intact. Lids and lashes normal. Conjunctiva and sclera are non-icteric and not injected. Cornea within normal limits. Periorbital areas with no swelling, redness, or edema. ENT: Nares patent. No nasal discharge, no septal abnormalities noted. Tympanic membranes are normal and external auditory canals are clear. Oropharynx with no redness, swelling, or masses, exudates, or evidence of obstruction, uvula midline. Mucous membranes moist. Neck: Trachea midline, no thyromegaly or masses palpated, and no cervical lymphadenopathy. Supple, full range of motion without nuchal rigidity, or vertebral point tenderness. No Meningismus. Chest/axilla: Normal chest wall appearance and motion. Nontender with no deformity. No lesions are appreciated. Cardiovascular: Regular rate and rhythm with a normal S1 and S2. No gallops, murmurs, or rubs. Normal PMI, no JVD. No pulse deficits. Respiratory: Lungs have equal breath sounds bilaterally, clear to auscultation and percussion. No rales, rhonchi or wheezes noted. No increased work of breathing, no retractions or nasal flaring. Abdomen/GI: Soft, non-tender, with normal bowel sounds. No distension or tympany. No guarding or rebound. No evidence of tenderness throughout. Back: No spinal tenderness. No costovertebral tenderness. Full range of motion. Male : Normal genitalia with no discharge or lesions. Skin: Warm, dry with normal turgor. Normal color with no rashes, no lesions, and no evidence of cellulitis. MS/ Extremity: Pulses equal, no cyanosis. Neurovascular intact. Full, normal range of motion. Neuro: Awake and alert, GCS 15, oriented to person, place, time, and situation. Cranial nerves II-XII grossly intact. Motor strength 5/5 in all extremities. Sensory grossly intact. Cerebellar exam normal. Normal gait. Psych: Awake, alert, with orientation to person, place and time. Behavior, mood, and affect are within normal limits. 21:20 ECG was reviewed by the Attending Physician. Vital Signs: 19:58 BP 112 / 64; Pulse 65; Resp 16; Temp 97.8(O); Pulse Ox 95% ; Weight 78.02 kg (R); jb4 Height 6 ft. 0 in. (182.88 cm) (R); Pain 0/10; 20:51 BP 110 / 69; Pulse 79; Resp 12 S; Temp 98.8; Pulse Ox 99% on R/A; as6 21:40 BP 114 / 67; Pulse 64; Resp 16 S; Pulse Ox 96% on R/A; as6 23:15 BP 107 / 78; Pulse 60; Resp 15 S; Pulse Ox 99% on R/A; Pain 0/10; as6 19:58 Body Mass Index 23.33 (78.02 kg, 182.88 cm) jb4 MDM: 20:24 Patient medically screened. lalito 21:25 Differential Diagnosis altered mental status. Differential diagnosis: cardiac lalito arrhythmia, CVA, generalized weakness, hypovolemia, idiopathic dizziness, near-syncope, TIA. Data reviewed: vital signs, nurses notes, lab test result(s), EKG, radiologic studies, CT scan, plain films. Data interpreted: cardiac monitor technician: rate is 79 beats/min, rhythm is regular, Pulse oximetry: on room air is 99 %. Test interpretation: by ED physician or midlevel provider: ECG, plain radiologic studies. Counseling: I had a detailed discussion with the patient and/or guardian regarding: the historical points, exam findings, and any diagnostic results supporting the discharge/admit diagnosis, lab results, radiology results. 10/03 21:18 Order name: Basic Metabolic Panel; Complete Time: 22:32 lalito 10/03 21:18 Order name: CBC with Diff; Complete Time: 22:32 lalito 10/03 21:18 Order name: LFT's; Complete Time: 22:32 lalito 10/03 21:18 Order name: Magnesium; Complete Time: 22:32 lalito 10/03 21:18 Order name: NT PRO-BNP; Complete Time: 22:32 lalito 10/03 21:18 Order name: PT-INR; Complete Time: 22:32 lalito 10/03 21:18 Order name: Troponin HS; Complete Time: 22:32 lalito 10/03 21:18 Order name: XRAY Chest (1 view); Complete Time: 22:32 [facility] 10/03 21:18 Order name: EKG; Complete Time: 21:19 lalito 10/03 21:18 Order name: Cardiac monitoring; Complete Time: 21:19 lalito 10/03 21:18 Order name: EKG - Nurse/Tech; Complete Time: 21:19 lalito 10/03 21:18 Order name: IV Saline Lock; Complete Time: 21:38 [facility] 10/03 21:18 Order name: CT Head Brain wo Cont; Complete Time: 22:32 [facility] 10/03 21:18 Order name: Labs collected and sent; Complete Time: 21:38 [facility] 10/03 21:18 Order name: O2 Per Protocol; Complete Time: 21: [facility] 10/03 21:18 Order name: O2 Sat Monitoring; Complete Time: 21: [facility] 10/03 22:32 Order name: Orthostatics lalito EC:20 Rate is 66 beats/min. Rhythm is regular. QRS Garrett is Normal. GA interval is normal. QRS lalito interval is normal. QT interval is normal. No Q waves. T waves are Normal. No ST changes noted. Clinical impression: NSR w/ Non-specific ST/T Changes and No evidence of ischemia. Interpreted by me. Reviewed by me. Administered Medications: 20:30 Drug: NS 0.9% 1000 ml Route: IV; Rate: 1 bolus; Site: left antecubital; as6 23:29 Follow up: Response: No adverse reaction; IV Status: Completed infusion; IV Intake: as6 1000ml Disposition Summary: 10/03/21 22:33 Discharge Ordered Location: Home lalito Problem: new lalito Symptoms: have improved lalito Condition: Stable lalito Diagnosis - Dizziness and giddiness lalito - Weakness lalito Followup: lalito - With: Private Physician - When: 1 - 2 days - Reason: Recheck today's complaints, Continuance of care, Re-evaluation by your physician Followup: lalito - With: - When: 1 - 2 days - Reason: Recheck today's complaints, Continuance of care, Re-evaluation by your physician Followup: allito - With: - When: 1 - 2 days - Reason: Recheck today's complaints, Re-evaluation by your physician Discharge Instructions: - Discharge Summary Sheet lalito - Dizziness lalito - Weakness lalito - Near-Syncope, [id number] lalito - Weakness, [id number] lalito - Aspirin and Your Heart lalito - Dizziness, [id number] lalito Forms: - Medication Reconciliation Form lalito - Thank You Letter lalito - Antibiotic Education lalito - Prescription Opioid Use lalito Signatures: Dispatcher [employer] EDGuanakito Sheikh MD MD cha Bryson, James, RN RN jb4 Jignesh Sutton RN RN as6 Corrections: (The following items were deleted from the chart) 20:03 20:01 PSHx: abdomenal surgery.; hugo jb4 23:32 21:18 Urine Dipstick-Ancillary ordered. lalito as6
[2021-10-03 23:52] VITALS: TEMP 98.8
[2021-10-03 23:55] VITALS: BP 107/78; O2SAT 99
--- NOTE | 2021-10-04 07:56 | EKG ---
Test Date: 2021-10-03 Test Time: 20:49:51 On Air Host: PEEWEE MEASUREMENT RESULTS: Intervals: Rate: 66 IN: 150 QRSD: 106 QT: 436 QTc: 457 [place]: P: 50 IN: 150 QRS: -2 T: 40 INTERPRETIVE STATEMENTS: Normal sinus rhythm Minimal voltage criteria for LVH, may be normal variant Septal infarct, age undetermined Abnormal ECG Compared to ECG 02/22/2018 13:16:09 Myocardial infarct finding now present Left-axis deviation no longer present Electronically Signed On 10-04-21 07:55:03 CDT by Jani Arevalo
== END 2021-10-03 23:33 | disposition home or self-care (01) ==
LOC: ER 19:47
DX: R42 Dizziness and giddiness (principal); R53.1 Weakness; R55 Syncope and collapse; I10 Essential (primary) hypertension; Z88.0 Allergy status to penicillin
CPT/HCPCS: 96361; 93005; 85025; 80048; 36415; 83735; 85610; 80076; 84484; 83880; 70450; 71045; 96360; 99284; J7030